=== PATIENT | male | born 1980 | race Caucasian/White ===

== ENCOUNTER 2022-03-28 22:42 | Emergency (ER) | payer SELFPAY ==
[2022-03-28 22:52] VITALS: BP 148/90; PULSE 71; RESP 17; TEMP 36.9; O2SAT 96; BMI 33.2
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
[2022-03-29 03:23] VITALS: BP 138/85; PULSE 80; RESP 18; O2SAT 97
== END 2022-03-29 03:24 | disposition home or self-care (01) ==
PROVIDERS: Emergency Provider Physician Assistant
DX: S00.03XA Contusion of scalp, initial encounter (principal); W22.8XXA Striking against or struck by other objects, initial encounter
CPT/HCPCS: 70450; 99283